=== PATIENT | female | born 1995 | race Caucasian/White ===

== ENCOUNTER 2024-04-04 07:32 | Inpatient (IN) ==
[2024-04-04] MEDS ORDERED: ACETAMINOPHEN 325 MG TAB PO PRN (07:38)
[2024-04-04] MEDS ORDERED: LIDOCAINE 1% LOCAL 20 ML VIAL INFIL PRN (07:38)
[2024-04-04] MEDS ORDERED: CALCIUM CARBONATE 500 MG CHEWABLE TAB PO PRN ×2 (07:38→23:56)
--- NOTE | 2024-04-04 08:08 | History & Physical Report ---
"Date of Service April 04, 2024 Assessment & Plan (1) Encounter for induction of labor: Plan Saniya is a 28yo at 40w6d admitted for IOL for postdates. Currently feeling well, denies any complications during current . No hazel bulb, straight to Pitocin. AROM when indicated. Monitor tracing, currently category I. Admission and Anticipated Discharge Date Admission Date: April 04, 2024 History of Present Illness Primary Care Provider: Vicente Jacome MD Saniya is a 28yo at 40w6d admitted for IOL for postdates. Currently feeling well, denies any complications during current . Endorses baby is moving intermittently. Denies significant vaginal bleeding or discharge during current . Denies any significant abdominal pain during current . Endorses she has been eating and drinking well, has been able to ambulate without issue. Endorses urinating regularly and last BM yesterday morning, no concerns. Denies any headache, SOB, chest pain, abdominal pain, vision changes, nausea/vomiting, LE pain/swelling, LE numbness/tingling. GBS neg, Rh+, T. pallidum pending. Allergies Allergy/AdvReac Type Severity Reaction Status Date / Time No Known Allergies Allergy Verified 04/03/24 13:23 Home Medications Medication Instructions Recorded Confirmed Type [id number] PO 08/12/23 04/03/24 History [ Plus] breast pump #1 ea 01/06/24 04/03/24 Rx breast pump #1 ea 01/06/24 04/03/24 Rx Patient History Medical History (Updated 04/04/24 @ 08:08 by Chetan Mullins DO) No pertinent past medical history Surgical History No pertinent past surgical history Family History Grandfather (Paternal) Myocardial infarction Grandfather No problems noted. Grandfather (Maternal) Lung cancer Grandmother (Maternal) Lung cancer Father Thyroid cancer Sister Epilepsy Down syndrome Denies family history of Ovarian cancer Prostate cancer Breast cancer Colorectal cancer Uterine cancer Social History Smoking Status: Never smoker Second Hand Exposure: No; Do You Dip or Chew Tobacco: No; Tobacco Cessation Education Requested by Patient: No Hx Alcohol Use: No Hx Substance Use: No Preferred Language: Guyanese Buccaro Required: No Beliefs That Will Affect Care: None marital status: marital status details: Khoa Isabel (30) [phone] Current Living Situation: Spouse Current Living Situation Comment: - Khoa current occupational status: employed current occupation: Teacher Other Information That Helps Us Care for You: No Feels Safe at Home: Yes Safety Concerns: Feels Safe At This Time Assistive Devices: None Review of Systems Denies recent fever, body aches, chills, sweats; otherwise per HPI Physical Exam Physical Exam: Constitutional: A&Ox3, in no acute distress, nontoxic in appearance HEENT: anicteric sclerae, EOM intact, PERRL b/l CV: RRR, +s1/s2, no m/r/g Respiratory: clear to auscultation b/l, no wheeze/rales/rhonchi GI/Abd: hypoactive BS, gravid, nontender to palpation LE: minor swelling, no erythema, no pitting edema; nontender to palpation of calves b/l, negative Gibran's sign b/l Cervical: 3 | 80 | -2 ; posterior, soft; estimated weight 7-8lbs FHM: baseline 140, moderate variability, accels absent, decels absent Results & Data Vital Signs (Past 12 Hours) Vital Signs Temp Pulse Resp BP 04/04/24 07:57 109 H 133/83 04/04/24 07:55 37.2 C 109 H 20 133/83 Supervising Physician Co-Signing Physician Notes Resident Physician Supervision Note: I interviewed and examined the patient. Discussed with Dr. Mullins and agree with findings and plan as documented in the note. Any exceptions or clarifications are listed here: Postdates iol. Favorable cervix. Fetus category oone. uncomplicated. Pitocin induction, arom when indicated, epidural on demand. anticipate . Documented By: Vanessa Thomas MD, FACOG Resident Activity Tracking Resident Involvement: Resident Care Provided Care Provided: OB Delivery"
[2024-04-04] MEDS: SODIUM CHLORIDE 0.9% 1,000 ML IV SCH (08:47)
[2024-04-04] MEDS: OXYTOCIN 30 UNITS/NSS 30 UNITS/500 ML BAG IV PRN ×2 (08:48→23:11)
[2024-04-04 08:55] LABS: Hematocrit (blood only) 36.7 % (37.0-47.0); Hemoglobin 12.5 g/dl (12.0-16.0); Mean Corpuscular Hgb Conc 34.1 g/dL (32.0-36.0); Mean Corpuscular Volume 85.2 fL (80.0-100.0); Mean Platelet Volume 10.3 fL (9.4-12.4); Platelet Count 141 K/uL (130-400); RDW Coefficient of Variation 12.1 % (11.5-14.5); RDW Standard Deviation 37.4 fL (36.4-46.3); Red Blood Count 4.31 M/uL (4.20-5.40); White Blood Count 8.13 K/ul (4.8-10.8)
--- NOTE | 2024-04-04 13:28 | Labor Progress Brief Note ---
Date of Service April 04, 2024 Subjective cramping Assessment & Plan (1) Encounter for induction of labor: Plan continue current plan. fetus category one. anticipate . Admission and Anticipated Discharge Date Admission Date: April 04, 2024 Physical Exam Physical Exam: cx--3/80/-2 arom--blood tinged toco--q2-4, pit at 14 efm--120s with mod variability, accels to 150s, no decels Results & Data Vital Signs (Past 12 Hours) Vital Signs Temp Pulse Resp BP 04/04/24 13:05 88 119/67 04/04/24 13:00 16 04/04/24 13:00 37.0 C 16 04/04/24 12:50 76 119/57 L 04/04/24 12:20 64 132/82 04/04/24 12:06 82 137/92 04/04/24 11:50 86 135/84 04/04/24 11:35 80 136/85 04/04/24 11:21 75 126/74 04/04/24 11:05 74 137/80 04/04/24 10:50 69 138/87 04/04/24 10:20 79 118/72 04/04/24 10:06 74 129/78 04/04/24 09:50 81 125/75 04/04/24 09:35 81 124/80 04/04/24 09:20 100 H 123/79 04/04/24 09:06 107 H 117/83 04/04/24 07:57 109 H 133/83 04/04/24 07:55 37.2 C 109 H 20 133/83 Coding Level of Care Code None Diagnoses Encounter for induction of labor Z34.90
--- NOTE | 2024-04-04 15:32 | Anesthesiology Consultation ---
Date of Service April 04, 2024 Assessment & Plan Chart Review Chart Review: Acceptable Risk for Surgery, Patient NOT seen in Pre Admission Testing and Acceptable Risk for Labor Epidural Consults Requested none ASA ASA2 Proposed Anesthesia Anesthesia Type: Labor Epidural and CSE History Height/Weight Height: 5 ft 5 in Weight: 89.811 kg Allergies Allergy/AdvReac Type Severity Reaction Status Date / Time No Known Allergies Allergy Verified 04/03/24 13:23 Medications Home Medications Medication Instructions Recorded Confirmed Last Taken [id number] PO 08/12/23 04/03/24 Unknown [ Plus] breast pump #1 ea 01/06/24 04/03/24 Unknown breast pump #1 ea 01/06/24 04/03/24 Unknown Active Medications Generic Name Dose Route Start Last Admin Trade Name Freq PRN Reason Stop Dose Admin Oxytocin 30 units in 500 mls @ 14 mls/hr 04/04/24 07:38 04/04/24 15:07 Pitocin 30 Units/Nss IV 04/06/24 07:37 0.84 units/hr .Q24H PRN 14 mls/hr Labor Induction/Augmentation Titration Protocol 0.84 UNITS/HR Sodium Chloride 1,000 mls @ 80 mls/hr 04/04/24 08:30 04/04/24 15:07 Nss IV 04/05/24 09:29 999 mls/hr .[id number] ASA Infusion Past Medical History Medical History No pertinent past medical history gerd anemia obese Exercise / Class Metabolic Activity II 4-5 Yardwork/Stairs/Walk up hill Past Family History Family History Grandfather (Paternal) Myocardial infarction Grandfather No problems noted. Grandfather (Maternal) Lung cancer Grandmother (Maternal) Lung cancer Father Thyroid cancer Sister Epilepsy 1/2 sister Down syndrome 1/2 sister Denies family history of Ovarian cancer Prostate cancer Breast cancer Colorectal cancer Uterine cancer Past Surgical History Surgical History No pertinent past surgical history Past Anesthesia History No Hx of Anesthesia Complications and No Family Hx of Anesthesia Complications History of PONV No Hx of PONV and No Hx of Motion Sickness Social History Smoking Status: Never smoker Do You Dip or Chew Tobacco: No Hx Alcohol Use: No Hx Substance Use: No Physical Exam Vital Signs Last Vital Signs Temp 36.7 C 04/04/24 13:21 Pulse 78 04/04/24 15:28 Resp 16 04/04/24 13:00 BP 127/82 04/04/24 15:27 Pulse Ox 98 04/04/24 15:28 Testing Laboratory Results 04/04/24 08:00
[2024-04-04] MEDS: BUPIVACAINE 0.25% PF 30 ML VIAL ONE (15:59)
[2024-04-04] MEDS: fentaNYL citrate PF 100 MCG/2 ML VIAL ONE (15:59)
[2024-04-04] MEDS: fentANYL 2 MCG/ML BUPIVacaine 0.125%-NSS 100ML BAG ONE (16:00)
[2024-04-04] MEDS: LIDOCAINE 2%/EPINEPHRINE 1:200,000 20 ML PF ONE (16:04)
[2024-04-04] MEDS ORDERED: PROMETHAZINE 6.25 MG/50.25 ML BAG IV PRN (16:05)
[2024-04-04] MEDS ORDERED: LIDOCAINE 2% MPF LOCAL 5 ML VIAL EPI PRN (16:05)
[2024-04-04] MEDS: SODIUM CHLORIDE 0.9% PF INJ 10 ML VIAL ONE (16:05)
[2024-04-04] MEDS ORDERED: NALOXONE HCL 1 MG in SODIUM CHLORIDE 0.9% 1,000 ML IV PRN (16:05)
[2024-04-04] MEDS ORDERED: ePHEDrine sulfate 50 MG/ML AMP IV PRN (16:05)
[2024-04-04] MEDS ORDERED: ROPIVACAINE 0.5% PF 5 MG/ML 20 ML VIAL EPI PRN (16:05)
[2024-04-04] MEDS ORDERED: NALBUPHINE HCL INJ 10 MG/ML AMP IV PRN (16:05)
[2024-04-04] MEDS ORDERED: fentaNYL citrate PF 100 MCG/2 ML VIAL EPI PRN (16:05)
[2024-04-04] MEDS ORDERED: ONDANSETRON INJ 2 MG/ML 2 ML VIAL IV PRN (16:05)
[2024-04-04] MEDS ORDERED: diphenhydrAMINE 50 MG/ML VIAL IV PRN (16:05)
[2024-04-04] MEDS ORDERED: NALOXONE HCL 0.4 MG/1 ML VIAL/CARP IV PRN (16:05)
[2024-04-04] MEDS: BUPIVACAINE 0.25% PF 30 ML VIAL EPI STA (16:54)
[2024-04-04] MEDS: ePHEDrine sulfate 50 MG/ML AMP ONE (16:54)
[2024-04-04] MEDS: fentaNYL citrate PF 100 MCG/2 ML VIAL EPI STA (16:54)
[2024-04-04] MEDS: LIDOCAINE 2%/EPINEPHRINE 1:200,000 20 ML PF EPI STA (16:54)
[2024-04-04] MEDS: SODIUM CHLORIDE 0.9% PF INJ 10 ML VIAL EPI STA (16:55)
--- NOTE | 2024-04-04 17:08 | Labor Progress Brief Note ---
Date of Service April 04, 2024 Subjective comfortable after epidural Assessment & Plan (1) Encounter for induction of labor: Plan continue current management. fetus category one. Admission and Anticipated Discharge Date Admission Date: April 04, 2024 Physical Exam Physical Exam: cx--4/80/-2 toco--q1-3, pit at 14 efm--120s with mod variability, accels to 150s, no decels Results & Data Vital Signs (Past 12 Hours) Vital Signs Temp Pulse Resp BP Pulse Ox 04/04/24 17:03 100 04/04/24 17:03 88 04/04/24 17:03 68 120/79 04/04/24 16:58 74 99 04/04/24 16:53 76 99 04/04/24 16:48 82 99 04/04/24 16:47 67 122/77 04/04/24 16:43 68 98 04/04/24 16:38 63 98 04/04/24 16:33 77 99 04/04/24 16:30 84 114/71 04/04/24 16:28 75 98 04/04/24 16:25 80 119/74 04/04/24 16:23 86 98 04/04/24 16:19 86 113/77 04/04/24 16:18 84 99 04/04/24 16:14 80 110/67 04/04/24 16:13 73 99 04/04/24 16:10 100 H 110/66 04/04/24 16:08 84 99 04/04/24 16:06 82 126/61 04/04/24 16:04 95 H 141/65 H 04/04/24 16:03 108 H 99 04/04/24 16:02 121 H 145/79 H 04/04/24 16:00 100 H 157/84 H 04/04/24 15:58 100 04/04/24 15:58 91 H 04/04/24 15:58 93 H 159/86 H 04/04/24 15:53 100 H 100 04/04/24 15:50 106 H 134/94 04/04/24 15:48 86 99 04/04/24 15:43 108 H 100 04/04/24 15:38 91 H 100 04/04/24 15:36 85 124/84 04/04/24 15:33 77 99 04/04/24 15:28 78 98 04/04/24 15:27 37.1 C 82 20 127/82 04/04/24 15:20 78 127/84 04/04/24 15:06 86 127/78 04/04/24 14:50 93 H 125/82 04/04/24 14:35 79 119/79 04/04/24 14:20 83 121/79 04/04/24 14:05 73 124/77 04/04/24 13:50 84 122/77 04/04/24 13:35 78 123/76 04/04/24 13:21 36.7 C 04/04/24 13:05 88 119/67 04/04/24 13:00 16 04/04/24 13:00 37.0 C 16 04/04/24 12:50 76 119/57 L 04/04/24 12:20 64 132/82 04/04/24 12:06 82 137/92 04/04/24 11:50 86 135/84 04/04/24 11:35 80 136/85 04/04/24 11:21 75 126/74 04/04/24 11:05 74 137/80 04/04/24 10:50 69 138/87 04/04/24 10:20 79 118/72 04/04/24 10:06 74 129/78 04/04/24 09:50 81 125/75 04/04/24 09:35 81 124/80 04/04/24 09:20 100 H 123/79 04/04/24 09:06 107 H 117/83 04/04/24 07:57 109 H 133/83 04/04/24 07:55 37.2 C 109 H 20 133/83 Coding Level of Care Code None Diagnoses Encounter for induction of labor Z34.90
[2024-04-04] MEDS ORDERED: NURSING L&D Epidural Breakthrough Pain Update ONE (18:33)
[2024-04-04] MEDS: BUPIVACAINE 0.25% PF 30 ML VIAL EPI PRN (19:28)
[2024-04-04] MEDS: SODIUM CHLORIDE 0.9% PF INJ 10 ML VIAL EPI PRN (19:29)
--- NOTE | 2024-04-04 19:31 | Anesthesia Procedure Note ---
Date of Service April 04, 2024 Anesthesia Epidural Re-Dose Vital Signs Temp Pulse Resp BP Pulse Ox 36.8 C 81 18 112/57 L 100 04/04/24 19:10 04/04/24 19:28 04/04/24 19:10 04/04/24 19:27 04/04/24 19:28 Notes Pain Intensity: 5 Dilatation (cm): 8.0 Effacement (%): 100 Called by nursing to evaluate epidural as the patient is having increased pain. The epidural was re-dosed with the following medications (all medications via epidural route) after negative aspiration of the epidural catheter for CSF/HEME. 0.2 Ropivacaine ml via epidural After Epidural Re-Dose Mental Status: alert / awake / arousable and participated in evaluation Pain: improving with treatment Airway Patency, RR, SpO2: stable & adequate BP & HR: stable & adequate Additional Notes: Patient now 8 cm and having pain. Redosed epidural with 8 cc of 0.125% bupi. Pain improved and HDS.
[2024-04-04] MEDS: fentANYL 2 MCG/ML BUPIVacaine 0.125%-NSS 100ML BAG EPI PRN (21:11)
--- NOTE | 2024-04-04 21:32 | Labor Progress Brief Note ---
Date of Service April 04, 2024 Subjective Got redose of epidural at 8cm. Now having back pain. Assessment & Plan (1) Encounter for induction of labor: Plan continue current management. fetus category one. push when complete. Admission and Anticipated Discharge Date Admission Date: April 04, 2024 Physical Exam Physical Exam: cx--ant lip/0 toco--q2-3min, pit at 11 efm--120s with mod variability, accels to 150s, no decels did have a period of a couple of variables and decel to 90s, pit halfed and resolved. Results & Data Vital Signs (Past 12 Hours) Vital Signs Temp Pulse Resp BP Pulse Ox O2 Del Method 04/04/24 21:24 108 H 98 04/04/24 21:19 91 H 100 04/04/24 21:14 87 98 04/04/24 21:12 103 H 92 04/04/24 21:10 36.9 C 04/04/24 21:09 88 100 04/04/24 21:05 94 H 92 04/04/24 21:04 90 99 04/04/24 21:03 90 140/82 04/04/24 20:59 104 H 99 04/04/24 20:57 108 H 92 04/04/24 20:54 89 99 04/04/24 20:49 98 04/04/24 20:49 81 04/04/24 20:49 85 133/78 04/04/24 20:46 90 91 04/04/24 20:44 74 100 04/04/24 20:40 87 91 04/04/24 20:39 86 100 04/04/24 20:34 94 H 139/90 93 04/04/24 20:33 79 100 04/04/24 20:28 93 H 100 04/04/24 20:24 96 H 92 04/04/24 20:23 76 100 04/04/24 20:19 80 92 04/04/24 20:18 100 04/04/24 20:18 91 H 04/04/24 20:18 75 121/74 04/04/24 20:13 96 H 100 04/04/24 20:08 83 99 04/04/24 20:07 88 89 L 04/04/24 20:04 82 128/83 04/04/24 20:03 80 100 04/04/24 20:00 85 94 04/04/24 19:58 86 100 04/04/24 19:53 81 100 04/04/24 19:48 96 H 100 04/04/24 19:47 79 121/58 L 04/04/24 19:46 90 90 04/04/24 19:45 82 122/58 L 04/04/24 19:43 78 124/60 100 04/04/24 19:41 94 H 127/60 04/04/24 19:39 85 117/65 04/04/24 19:38 75 100 04/04/24 19:37 81 115/63 04/04/24 19:35 88 119/57 L 04/04/24 19:33 84 119/76 100 04/04/24 19:31 79 110/65 04/04/24 19:29 90 120/66 04/04/24 19:28 81 100 04/04/24 19:27 77 112/57 L 04/04/24 19:23 98 H 100 04/04/24 19:19 81 114/58 L 04/04/24 19:18 91 H 100 04/04/24 19:15 Room Air 04/04/24 19:13 87 100 04/04/24 19:10 18 04/04/24 19:10 36.8 C 18 04/04/24 19:08 88 100 04/04/24 19:05 90 138/83 04/04/24 19:03 89 100 04/04/24 19:02 70 93 04/04/24 18:58 85 100 04/04/24 18:53 74 100 04/04/24 18:48 77 119/86 100 04/04/24 18:43 81 100 04/04/24 18:38 75 100 04/04/24 18:35 94 H 91 04/04/24 18:33 77 100 04/04/24 18:32 80 125/63 04/04/24 18:28 75 100 04/04/24 18:23 77 100 04/04/24 18:18 73 100 04/04/24 18:17 77 118/55 L 04/04/24 18:13 76 100 04/04/24 18:08 70 100 04/04/24 18:03 69 100 04/04/24 18:02 74 124/61 04/04/24 17:58 71 100 04/04/24 17:53 80 100 04/04/24 17:48 100 04/04/24 17:48 78 04/04/24 17:48 75 140/58 L 04/04/24 17:43 70 100 04/04/24 17:38 73 100 04/04/24 17:36 67 115/61 04/04/24 17:33 70 99 04/04/24 17:32 59 L 117/63 04/04/24 17:28 69 99 04/04/24 17:23 75 99 04/04/24 17:18 78 98 04/04/24 17:17 77 115/76 04/04/24 17:13 78 98 04/04/24 17:08 79 99 04/04/24 17:03 20 04/04/24 17:03 36.9 C 20 04/04/24 17:03 100 04/04/24 17:03 88 04/04/24 17:03 68 120/79 04/04/24 16:58 74 99 04/04/24 16:53 76 99 04/04/24 16:48 82 99 04/04/24 16:47 67 122/77 04/04/24 16:43 68 98 04/04/24 16:38 63 98 04/04/24 16:33 77 99 04/04/24 16:30 84 114/71 04/04/24 16:28 75 98 04/04/24 16:25 80 119/74 04/04/24 16:23 86 98 04/04/24 16:19 86 113/77 04/04/24 16:18 84 99 04/04/24 16:14 80 110/67 04/04/24 16:13 73 99 04/04/24 16:10 100 H 110/66 04/04/24 16:08 84 99 04/04/24 16:06 82 126/61 04/04/24 16:04 95 H 141/65 H 04/04/24 16:03 108 H 99 04/04/24 16:02 121 H 145/79 H 04/04/24 16:00 100 H 157/84 H 04/04/24 15:58 100 04/04/24 15:58 91 H 04/04/24 15:58 93 H 159/86 H 04/04/24 15:53 100 H 100 04/04/24 15:50 106 H 134/94 04/04/24 15:48 86 99 04/04/24 15:43 108 H 100 04/04/24 15:38 91 H 100 04/04/24 15:36 85 124/84 04/04/24 15:33 77 99 04/04/24 15:28 78 98 04/04/24 15:27 37.1 C 82 20 127/82 04/04/24 15:20 78 127/84 04/04/24 15:06 86 127/78 04/04/24 14:50 93 H 125/82 04/04/24 14:35 79 119/79 04/04/24 14:20 83 121/79 04/04/24 14:05 73 124/77 04/04/24 13:50 84 122/77 04/04/24 13:35 78 123/76 04/04/24 13:21 36.7 C 04/04/24 13:05 88 119/67 04/04/24 13:00 16 04/04/24 13:00 37.0 C 16 04/04/24 12:50 76 119/57 L 04/04/24 12:20 64 132/82 04/04/24 12:06 82 137/92 04/04/24 11:50 86 135/84 04/04/24 11:35 80 136/85 04/04/24 11:21 75 126/74 04/04/24 11:05 74 137/80 04/04/24 10:50 69 138/87 04/04/24 10:20 79 118/72 04/04/24 10:06 74 129/78 04/04/24 09:50 81 125/75 04/04/24 09:35 81 124/80 Coding Level of Care Code None Diagnoses Encounter for induction of labor Z34.90
--- NOTE | 2024-04-04 23:23 | Anesthesia Procedure Note ---
Date of Service April 04, 2024 Anesthesia Post Epidural Note Vital Signs Vital Signs: Temp Pulse Resp BP Pulse Ox O2 Del Method 36.9 C 97 H 18 117/68 98 Room Air 04/04/24 21:10 04/04/24 23:11 04/04/24 19:10 04/04/24 23:11 04/04/24 22:34 04/04/24 19:15 Pain Intensity Bilateral Abdomen: Pain Intensity: 8 Back: Pain Intensity: 8 Notes Mental Status: alert / awake / arousable and participated in evaluation Nausea / Vomiting: adequately controlled Pain: adequately controlled Airway Patency, RR, SpO2: stable & adequate BP & HR: stable & adequate Hydration State: stable & adequate Neuraxial Anesthesia: was administered and sensory block is resolving Anesthetic Complications: no major complications apparent Epidural: Removed without complications and With tip intact
[2024-04-04] MEDS ORDERED: oxyCODONE/ACETAMINOPHEN 5mg/325mg TAB PO PRN (23:28)
[2024-04-04] MEDS ORDERED: OXYTOCIN 30 UNITS/NSS 30 UNITS/500 ML BAG IV PRN (23:28)
[2024-04-04] MEDS ORDERED: HYDROCORTISONE ACETATE 25 MG SUPP PR PRN (23:28)
--- NOTE | 2024-04-04 23:32 | Delivery Summary ---
Vaginal Delivery Summary Date of Service April 04, 2024 Vaginal Delivery Summary and 3rd Degree LAC (and left sulcal laceration) Pre-operative Diagnosis: iup at 40 6/7 postdates induction Post-operative Diagnosis: same Procedure: pitocin induction arom epidural vavd 3rd degree laceration and left sulcal laceration and repair EBL: 755cc Anesthesia: epidural Procedure: The patient was admitted for a postdates induction. Pitocin was started. When in a good pattern, arom for clear fluid. She then progressed to c/c/+2 station with baby category one. She started the second stage and pushed with good effort. However, the fetus deceled to the 80s with push with slow return to baseline. There was no mec and variability remained good. Discussion for continued pushing, vacuum assist or c/s. r/b/se of vacuum assist discussed with the patient. She agreeed. the bladder was drained. The fetus in OP presentation. The patient pushed for two more contractions. With the second contraction, the vacuum was applied to the green area and then with one push and no pop offs, the vertex delivered in OP that rotated to OA. there was no nuchal cord but there was a body cord noted with the delivery of the rest of the body which happened immediately after delivery of the head over an intact perineum. The nose and mouth were bulb suctioned. The baby was vigorous. The was placed in the maternal abdomen for drying and attention. Cord was clamped and cut at one minute of life. Cord blood and segment obtained. Placenta delivered spontaneous, intact with a three vessel cord. Cervix/sulci/rectum were intact. A 3rd degree perineal laceration and left sulcal laceration were repaired in the normal standard fashion--3 figure of eight sutures of 2-0 vicryl were used to reapproximate the sphincter. The rectum was noted to be intact with good approximation of the sphincter. The left sulcal laceration was identified and repaired with 3-0 vicryl. The resulting laceration was then repaired. Hemostasis obtained with dilute pitocin and fundal massage and IM methergine. Excess blood loss was from the sulcal and 3rd degree laceration. Apgars were 8/9. Mother and baby doing well at the end of the delivery. [facility] Vaginal Delivery Charge Delivery Type Details: and 3rd Degree LAC (and left sulcal laceration)
[2024-04-05] MEDS: CALCIUM CARBONATE 500 MG CHEWABLE TAB ONE (00:25)
[2024-04-05] MEDS: IBUPROFEN 600 MG TAB PO ONE (00:25)
[2024-04-05] MEDS: METHYLERGONOVINE MALEATE 0.2 MG/ML AMP ONE (00:25)
[2024-04-05] MEDS: METHYLERGONOVINE MALEATE 0.2 MG/ML AMP IM ONE (00:29)
[2024-04-05] MEDS: DIPHTHER/TETAN/PERTUS Vaccine (Tdap, Adol/Adult) 0.5mL IM ONE (00:30)
[2024-04-05] MEDS: BENZOCAINE 20% SPRY 85 APPLN/85 GM CAN EXT PRN (01:36)
--- NOTE | 2024-04-05 06:56 | Obstetrical Progress Note ---
Date of Service April 05, 2024 Assessment & Plan (1) state: (2) Perineal laceration during delivery: (3) Perineal laceration involving vagina: Plan Saniya is a 28yo day 1 s/p VAVD with 3rd deg perineal laceration + Left sulcal laceration. Feeling well this AM, VSS. Continue care Encourage ambulation and Pain control as needed Hgb: 12.5 -> 9.9. asymptomatic Home once able to ambulate independently and improvement of R upper medial leg numbness Followup with Dr. Thomas in 6wks. Admission and Anticipated Discharge Date Admission Date: April 04, 2024 Supervising Physician Co-Signing Physician Notes Resident Physician Supervision Note: I interviewed and examined the patient. Discussed with Dr. Mullins and agree with findings and plan as documented in the note. Any exceptions or clarifications are listed here: Doing well. Has anterior right thigh numbness. Improving with time and likely a pressure issue and should resolve. Bottom feeling ok. Routine care and monitoring. Documented By: Vanessa Thomas MD, FACOG Subjective Saniya is a 28yo day 1 s/p VAVD with 3rd deg perineal laceration + Left sulcal laceration. Feeling well this AM, endorses some sleep overnight. Pain: endorses only minimal pain Ambulation: needs assistance w/ ambulation as R inner thigh feels numb and pt is uncomfortable walking on her own at this time Gas: yes Voiding: urinating, no BM yet Lochia: decreasing Diet: tolerating well Feeds: , having some trouble with latching, supplementing as needed Endorses R inner thigh numbness. Denies headache, chest pain, SOB, n/v/d, LE pain/swelling, LE tingling. Review of Systems Review of Systems: Denies fever, body aches, chills, sweats, vision changes, significant vaginal bleeding/discharge. Physical Exam Physical Exam: General: A&Ox3, resting comfortably in bed, in no apparent distress, nontoxic in appearance Skin: warm, dry, intact HEENT: EOM intact, PERRL b/l Cardiovascular: RRR, +s1/s2, no murmurs/rubs/gallops Pulmonary: clear to auscultation b/l, no wheezes/rales/rhonchi GI/Abd: +BS, uterine fundus firm, nontender to palpation, 1 fingerwidth superior to level of umbilicus Extremities: numbness to R medial upper leg; no significant swelling or erythema of b/l LE, nontender to palpation, negative Gibran's b/l; warm, no clubbing or cyanosis Neuro: no facial droop, speech intact, moves all extremities on command Results & Data Laboratory Results 04/05/24 04/04/24 Range/Units 07:10 08:00 WBC 8.13 (4.8-10.8) K/ul RBC 4.31 (4.20-5.40) M/uL Hgb 9.9 L 12.5 (12.0-16.0) g/dl Hct 28.9 L 36.7 L (37.0-47.0) % MCV 85.2 (80.0-100.0) fL MCH 29.0 (25.0-34.0) pg MCHC 34.1 (32.0-36.0) g/dL RDW Std Deviation 37.4 (36.4-46.3) fL RDW Coeff of Johanny 12.1 (11.5-14.5) % Plt Count 141 (130-400) K/uL MPV 10.3 (9.4-12.4) fL Treponema pallidum Ab Negative (Negative) Blood Type O Positive Antibody Screen NEGATIVE Resident Activity Tracking Resident Involvement: Resident Care Provided Care Provided: OB Delivery (2) Perineal laceration during delivery Perineal laceration degree: third degree Third degree perineal laceration subtype: unspecified Qualified Code(s): O70.20 - Third degree perineal laceration during delivery, unspecified (3) Perineal laceration involving vagina Encounter type: initial encounter Qualified Code(s): S31.41XA - Laceration without foreign body of vagina and vulva, initial encounter
[2024-04-05 07:40] LABS: Hematocrit (blood only) 28.9 % (37.0-47.0); Hemoglobin 9.9 g/dl (12.0-16.0)
[2024-04-05] MEDS: PRENATAL VITAMIN 1 TAB PO SCH (08:37)
[2024-04-05] MEDS: DOCUSATE SODIUM 100 MG CAP PO SCH (08:37)
[2024-04-05] MEDS: IBUPROFEN 600 MG TAB PO PRN (08:37)
[2024-04-05] MEDS: ACETAMINOPHEN 325 MG TAB PO PRN (13:55)
[2024-04-05] MEDS: bisacodyL 5 MG TABEC PO SCH (19:51)
[2024-04-06 05:48] VITALS: O2SAT 99
--- NOTE | 2024-04-06 07:32 | Obstetrical Progress Note ---
Date of Service April 06, 2024 Assessment & Plan (1) state: (2) Perineal laceration during delivery: (3) Perineal laceration involving vagina: Plan Saniya is a 28yo day 2 s/p VAVD with 3rd deg perineal laceration + Left sulcal laceration. Feeling well this AM, VSS. Continue care Ambulation and Pain control as needed Hgb: 12.5 -> 9.9 on 04/05/24, asymptomatic Home today Followup with Dr. Thomas in 6wks. Admission and Anticipated Discharge Date Admission Date: April 04, 2024 Supervising Physician Co-Signing Physician Notes Resident Physician Supervision Note: I was present with Dr. Chen during the history and exam. I discussed the case with the resident and agree with the findings and plan as documented in the note. Any exceptions or clarifications are listed here: [None] Documented By: Jermaine Camargo MD, FACOG Subjective Saniya is a 28yo day 2 s/p VAVD with 3rd deg perineal laceration + Left sulcal laceration. Feeling well this AM, endorses some sleep overnight. Pain: endorses only minimal pain Ambulation: yes, RLE numbness has resolved Gas: yes Voiding: urinating, had BM Lochia: decreasing Diet: tolerating well Feeds: , supplementing as needed Denies headache, chest pain, SOB, n/v/d, LE pain/swelling, LE tingling/numbness Review of Systems Review of Systems: Denies fever, body aches, chills, sweats, vision changes, significant vaginal bleeding/discharge. Physical Exam Physical Exam: General: A&Ox3, resting comfortably in bed, in no apparent distress, nontoxic in appearance Skin: warm, dry, intact HEENT: EOM intact, PERRL b/l Cardiovascular: RRR, +s1/s2, no murmurs/rubs/gallops Pulmonary: clear to auscultation b/l, no wheezes/rales/rhonchi GI/Abd: +BS, uterine fundus firm, nontender to palpation, 1 fingerwidth inferior to level of umbilicus Extremities: no significant swelling or erythema of b/l LE, nontender to palpation, negative Gibran's b/l; warm, no clubbing or cyanosis Neuro: no facial droop, speech intact, moves all extremities on command Results & Data Vital Signs (Past 12 Hours) Vital Signs Temp Pulse Resp BP Pulse Ox O2 Del Method 04/06/24 05:44 36.4 C L 82 16 111/71 99 Room Air 04/05/24 20:00 36.7 C 94 H 18 112/76 98 Room Air 04/05/24 20:00 Room Air Resident Activity Tracking Resident Involvement: Resident Care Provided Care Provided: OB Delivery (2) Perineal laceration during delivery Perineal laceration degree: third degree Third degree perineal laceration subtype: unspecified Qualified Code(s): O70.20 - Third degree perineal laceration during delivery, unspecified (3) Perineal laceration involving vagina Encounter type: initial encounter Qualified Code(s): S31.41XA - Laceration without foreign body of vagina and vulva, initial encounter
[2024-04-06 09:55] VITALS: BP 128/82; PULSE 94; RESP 18; TEMP 99
[2024-04-07] MEDS ORDERED: bisacodyL 10 MG SUPP PR PRN (23:28)
== END 2024-04-06 12:59 | disposition home or self-care (01) | DRG 768 ==
LOC: 4S1 07:32 → 4E2 04-05 01:55